=== PATIENT | male | born 2005 | race Caucasian/White ===

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

== ENCOUNTER 2024-06-25 18:25 | Emergency (ER) | payer OTHER ==
[2024-06-25 19:18] VITALS: BP 121/73; PULSE 73; RESP 20; TEMP 98.6; BMI 26.6
[2024-06-25] MEDS ORDERED: PANTOPRAZOLE 40 MG TABLET PO ONE (19:53)
[2024-06-25 20:12] LABS: HEMATOCRIT 46.7 % (35.4-49); HEMOGLOBIN 15.6 G/dL (11.7-16.9); MCH 29.2 pg (25.7-33.7); MCHC 33.3 g/dl (32.0-35.9); MEAN CELL VOLUME 87.7 fl (80-96); MEAN PLT VOLUME 7.9 fl (7.5-11.1); PLATELET COUNT 344.9 10^3/uL (134-434); RBC 5.32 10^6/uL (4.00-5.60); RDW 13.5 % (11.9-15.9); WHITE BLOOD COUNT 10.3 10^3/uL (4.0-10.8)
[2024-06-25] MEDS: PANTOPRAZOLE 40 MG TABLET PO ONE (20:26)
[2024-06-25] MEDS: PANTOPRAZOLE SODIUM 40 MG VIAL IVPUSH ONE (20:26)
[2024-06-25 20:35] LABS: ALBUMIN 4.9 g/dl (3.4-5.0); BILIRUBIN,TOTAL 0.5 mg/dl (0.2-1); CALCIUM 9.7 mg/dl (8.5-10.1); CREATININE 1.2 mg/dl (0.6-1.3); POTASSIUM 3.6 mmol/L (3.5-5.1)
== END 2024-06-25 20:53 | disposition home or self-care (01) ==
LOC: FER 18:25
DX: R10.13 Epigastric pain (principal)
CPT/HCPCS: 36415; 74019-TC-FY; 80053; 83690; 85027; 99283-25